=== PATIENT | female | born 1950 | race African-American/Black ===

== ENCOUNTER 2017-03-05 18:20 | Observation (INO) | payer MEDICARE, MEDICAID ==
[~2017-03-05] VITALS: Ht 157.5 cm; Wt 60.8 kg
[~2017-03-05 18:20] MED LIST: ASPI-1079 PO; GABA300C PO; INSU100C11 SQ; LISI10TA5 PO; METF500T PO; SIMV10TA2 PO
[2017-03-05 19:36] LABS: BASOPHILS % 0.9 % (0.0-2.0); EOSINOPHILS % 1.8 % (0.0-5.0); HEMATOCRIT. 33.2 % (36.0-48.0); HEMOGLOBIN. 11.2 g/dL (12.0-16.0); LYMPHOCYTES % 14.6 % (20.0-50.0); MEAN CORPUSCULAR HEMOGLOBIN 25.8 pg (28.0-32.0); MEAN CORPUSCULAR VOLUME 76.3 fL (81.0-99.0); MEAN PLATELET VOLUME 9.6 fl (7.4-10.4); MONOCYTES % 10.7 % (2.0-8.0); PLATELET 164 x1000/uL (130-400); RED BLOOD CELL COUNT 4.35 mill/uL (4.2-5.4); RED CELL DISTRIBUTION WIDTH 14.3 % (11.6-14.6)
[2017-03-05 19:42] LABS: INR 1.1; PROTHROMBIN TIME 11.7 sec (9.4-11.6)
[2017-03-05 19:54] LABS: CARBON DIOXIDE 32 mEq/L (21-32); CHLORIDE 98 mEq/L (98-107); TROPONIN I < 0.02 ng/mL (0.00-0.04)
[2017-03-05] MEDS ORDERED: SODIUM CHLORIDE 0.9% 1,000 ML IV ONE (20:43)
[2017-03-05] MEDS ORDERED: KETOROLAC 30MG/ML VIAL IV STA (20:43)
[2017-03-06] VITALS (8 sets, daily range): BP systolic 82–149; BP diastolic 55–99
[2017-03-06] MEDS ORDERED: INSULIN REGULAR (HUMULIN R) 300UNITS/3ML SUBCUT ONE (01:15)
[2017-03-06] MEDS ORDERED: SITA100T11 PO (02:34)
[2017-03-06] MEDS ORDERED: POTA20TA12 PO (02:34)
[2017-03-06] MEDS ORDERED: METF10002 PO (02:34)
[2017-03-06] MEDS ORDERED: ACET-2178 PO (02:34)
[2017-03-06] MEDS ORDERED: LISI-604 PO (02:34)
[2017-03-06] MEDS ORDERED: ROSU20TA PO (02:34)
[2017-03-06] MEDS ORDERED: FURO-151 PO (02:34)
[2017-03-06] MEDS ORDERED: INSU100I3 SQ (02:34)
[2017-03-06] MEDS ORDERED: CYAN10009 PO (02:34)
[2017-03-06] MEDS ORDERED: INSU3INS6 SUBCUT (02:34)
[2017-03-06] MEDS ORDERED: GABA600T PO (02:34)
[2017-03-06] MEDS ORDERED: TEMAZEPAM 15MG CAPSULE PO PRN (03:30)
[2017-03-06] MEDS ORDERED: SODIUM CHLORIDE 0.9% 500 ML IV ONE (03:45)
[2017-03-06] MEDS: SODIUM CHLORIDE 0.9% INJ 3ML FLUSH IVF SCH ×3 (04:00→20:36)
[2017-03-06] MEDS ORDERED: DEXTROSE 50% WATER 50ML SYRINGE IV PRN (04:00)
[2017-03-06] MEDS: GABAPENTIN 300MG CAPSULE PO SCH ×3 (05:32→20:35)
[2017-03-06] MEDS: BLOOD SUGAR DIAGNOSTIC STRIP TEST SCH ×4 (05:40→20:48)
[2017-03-06 06:23] LABS: CLARITY URINE CLEAR (CLEAR); COLOR URINE YELLOW (YELLOW); GLUCOSE URINE 3+ (NEGATIVE); KETONES URINE NEGATIVE (NEGATIVE); LEUKOCYTE ESTERASE URINE 1+ (NEGATIVE); NITRITE URINE NEGATIVE (NEGATIVE); OCCULT BLOOD URINE NEGATIVE (NEGATIVE); PROTEIN URINE NEGATIVE (NEGATIVE); SPECIFIC GRAVITY URINE 1.021 (1.005-1.030); UROBILINOGEN URINE 0.2 E.U./dL (0.2-1.0)
[2017-03-06] MEDS: INSULIN LISPRO 100 UNITS/ML SUBCUT SCH ×4 (08:07→21:08)
[2017-03-06] MEDS ORDERED: FAMOTIDINE 20MG TABLET PO SCH ×2 (09:00→17:00)
[2017-03-06] MEDS ORDERED: ASPIRIN 81MG EC TABLET PO SCH (09:00)
[2017-03-06] MEDS ORDERED: LISINOPRIL 20MG TABLET PO SCH (09:00)
[2017-03-06] MEDS ORDERED: ENOXAPARIN 40MG/0.4ML SYR SUBCUT SCH (09:00)
[2017-03-06] MEDS: ACETAMINOPHEN 325MG TABLET PO PRN ×2 (11:47→21:09)
[2017-03-06 13:29] LABS: BASOPHILS % 1.7 % (0.0-2.0); EOSINOPHILS % 2.5 % (0.0-5.0); HEMATOCRIT. 35.3 % (36.0-48.0); HEMOGLOBIN. 11.8 g/dL (12.0-16.0); LYMPHOCYTES % 20.7 % (20.0-50.0); MEAN CORPUSCULAR HEMOGLOBIN 25.8 pg (28.0-32.0); MEAN CORPUSCULAR VOLUME 77.2 fL (81.0-99.0); MEAN PLATELET VOLUME 10.3 fl (7.4-10.4); MONOCYTES % 7.6 % (2.0-8.0); NEUTROPHILS % 67.5 % (40.0-76.0); PLATELET 160 x1000/uL (130-400); RED BLOOD CELL COUNT 4.57 mill/uL (4.2-5.4); RED CELL DISTRIBUTION WIDTH 14.5 % (11.6-14.6)
[2017-03-06 14:01] LABS: CARBON DIOXIDE 31 mEq/L (21-32); CHLORIDE 102 mEq/L (98-107); HDL CHOLESTEROL 73 mg/dL (40-59); LDL CHOLESTEROL 45 mg/dL (5-100); TOTAL IRON BINDING CAPACITY 353 ug/dL (250-450); TROPONIN I < 0.02 ng/mL (0.00-0.04)
[2017-03-06 14:19] LABS: VITAMIN B12 SERUM 1498 pg/mL (211-911)
[2017-03-06 14:21] LABS: FOLIC ACID (FOLATE) SERUM > 20.00 ng/mL (>5.38)
[2017-03-06 14:52] LABS: FERRITIN 87 ng/mL (10-291)
[2017-03-06] MEDS ORDERED: ATORVASTATIN CALCIUM 40MG TABLET PO SCH (21:00)
[2017-03-08 14:21] LABS: A/G RATIO 1.6 (0.7-1.7); ALBUMIN 4.2 g/dL (2.9-4.4); ALPHA-1-GLOBULIN 0.2 g/dL (0.0-0.4); ALPHA-2-GLOBULIN 0.7 g/dL (0.4-1.0); BETA GLOBULIN 0.9 g/dL (0.7-1.3); GAMMA GLOBULINS 0.9 g/dL (0.4-1.8); GLOBULIN TOTAL 2.6 g/dL (2.2-3.9); M-SPIKE Not Observed g/dL (Not Observed); TOTAL PROTEIN SERUM 6.8 g/dL (6.0-8.5)
== END 2017-03-06 22:45 | disposition home or self-care (01) ==
LOC: ER 18:20 → INTOOBSV 21:37 → 7WST 21:37 → ENRESERV 21:50
PROVIDERS: ADMIT Internal Medicine; ATTEND Internal Medicine
DX: R55 Syncope and collapse (principal); M19.90 Unspecified osteoarthritis, unspecified site; N17.9 Acute kidney failure, unspecified; E11.65 Type 2 diabetes mellitus with hyperglycemia; Z83.3 Family history of diabetes mellitus
CPT/HCPCS: 36415; 70450; 71010; 80048; 80053; 80061; 81001; 82607; 82728; 82746; 82962; 83540; 83550; 83880; 84155; 84165; 84443; 84484; 85025; 85379; 85610; 93005; 96361; 96372; 96374; 99285; G0378; J1650; J1815; J1885; J7030; J7040

== ENCOUNTER 2017-08-13 18:40 | Observation (INO) | payer MEDICARE, MEDICAID ==
[~2017-08-13] VITALS: Ht 157.5 cm; Wt 60.8 kg
[~2017-08-13 18:40] MED LIST changes: +ACET-2178 PO; +CYAN10009 PO; +FURO-151 PO; +GABA600T PO; -INSU100C11 SQ; +INSU100I3 SQ; +INSU3INS6 SUBCUT; +LISI-604 PO; -LISI10TA5 PO; +METF10002 PO; -METF500T PO; +POTA20TA12 PO; +ROSU20TA PO; -SIMV10TA2 PO; +SITA100T11 PO
[2017-08-13] MEDS ORDERED: SODIUM CHLORIDE 0.9% 1,000 ML IV ONE ×2 (19:17→19:23)
[2017-08-13] MEDS ORDERED: ONDANSETRON HCL 4MG/2ML VIAL IV ONE (19:30)
[2017-08-13] MEDS ORDERED: DEXTROSE 50% WATER 50ML SYRINGE IV ONE (19:30)
[2017-08-13 19:45] LABS: BASOPHILS % 0.9 % (0.0-2.0); EOSINOPHILS % 1.8 % (0.0-5.0); HEMATOCRIT. 36.3 % (36.0-48.0); HEMOGLOBIN. 11.9 g/dL (12.0-16.0); LYMPHOCYTES % 26.2 % (20.0-50.0); MEAN CORPUSCULAR HEMOGLOBIN 24.3 pg (28.0-32.0); MEAN CORPUSCULAR VOLUME 74.1 fL (81.0-99.0); MEAN PLATELET VOLUME 9.7 fl (7.4-10.4); MONOCYTES % 12.1 % (2.0-8.0); PLATELET 214 x1000/uL (130-400); RED CELL DISTRIBUTION WIDTH 15.4 % (11.6-14.6)
[2017-08-13 19:57] LABS: BETA HYDROXYBUTYRATE 0.1 mMol/L (0.0-0.3); ETHANOL BLOOD < 10 mg/dL
[2017-08-13 20:00] LABS: TROPONIN I < 0.02 ng/mL (0.00-0.04)
[2017-08-13 21:43] LABS: BG BASE EXCESS 6.9 mmol/L (-2.0-2.0); BG CARBOXYHEMOGLOBIN 0.5 % (0.5-1.5); BG DEOXYHEMOGLOBIN 2.4 % (0.0-5.0); BG FRACTION INSPIRED OXYGEN 21; BG METHEMOGLOBIN 0.3 % (0.0-1.5); BG OXYGEN SATURATION 97.6 % (92.0-98.5); BG OXYHEMOGLOBIN 96.8 % (94.0-97.0); BG PCO2 53.7 mmHg (35.0-45.0); BG PH 7.406 (7.350-7.450); BG PO2 108.1 mmHg (75.0-100.0); BG SAMPLE SITE RIGHT RADIAL; BG TOTAL HEMOGLOBIN 12.3 g/dL (12.0-18.0); BG VENT MODE ROOM AIR
[2017-08-13 22:38] LABS: CHLORIDE 103 mEq/L (98-107)
[2017-08-13 22:48] LABS: TROPONIN I < 0.02 ng/mL (0.00-0.04)
[2017-08-14] MEDS ORDERED: ONDANSETRON HCL 4MG/2ML VIAL IV ONE (06:15)
[2017-08-14] MEDS ORDERED: KETOROLAC 30MG/ML VIAL IV ONE (06:15)
[2017-08-14 09:34] VITALS: BP 99/72
[2017-08-14] MEDS ORDERED: ASPI-867 PO (09:46)
[2017-08-14 09:57] VITALS: BP 99/72
[2017-08-14] MEDS ORDERED: ACETAMINOPHEN 325MG TABLET PO PRN (10:00)
[2017-08-14] MEDS ORDERED: ONDANSETRON HCL 4MG/2ML VIAL IV PRN (10:00)
[2017-08-14] MEDS ORDERED: DOCUSATE SODIUM 100MG CAPSULE PO PRN (10:00)
[2017-08-14] MEDS ORDERED: CLONIDINE 0.1MG TABLET PO PRN (10:00)
[2017-08-14] MEDS ORDERED: PNEUMOCOCCAL 23-VAL P-SAC VAC 0.5 ML IM ONE (10:15)
[2017-08-14] MEDS ORDERED: DEXTROSE 50% WATER 50ML SYRINGE IV PRN (10:15)
[2017-08-14] MEDS: SODIUM CHLORIDE 0.9% 1,000 ML IV SCH ×2 (11:54→21:36)
[2017-08-14] MEDS: BLOOD SUGAR DIAGNOSTIC STRIP TEST SCH ×3 (11:54→21:36)
[2017-08-14 12:00] VITALS: BP 104/72
[2017-08-14] MEDS: INSULIN LISPRO 100 UNITS/ML SUBCUT SCH ×3 (12:52→21:45)
[2017-08-14] MEDS ORDERED: INSULIN LISPRO 100 UNITS/ML SUBCUT SCH (13:10)
[2017-08-14 16:00] VITALS: BP 118/79
[2017-08-14 17:38] LABS: CLARITY URINE CLOUDY (CLEAR); COLOR URINE YELLOW (YELLOW); KETONES URINE TRACE (NEGATIVE); LEUKOCYTE ESTERASE URINE 2+ (NEGATIVE); NITRITE URINE NEGATIVE (NEGATIVE); OCCULT BLOOD URINE NEGATIVE (NEGATIVE); PROTEIN URINE 1+ (NEGATIVE); SPECIFIC GRAVITY URINE 1.023 (1.005-1.030); UROBILINOGEN URINE 0.2 E.U./dL (0.2-1.0)
[2017-08-14 17:57] LABS: *AMPHETAMINES SCREEN URINE NEGATIVE (NEGATIVE); *BARBITURATES SCREEN URINE NEGATIVE (NEGATIVE); *BENZODIAZEPINES SCREEN URINE NEGATIVE (NEGATIVE); *COCAINE SCREEN URINE NEGATIVE (NEGATIVE); CANNABINOID URINE SCREEN NEGATIVE (NEGATIVE); METHADONE URINE SCREEN NEGATIVE (NEGATIVE); OPIATES URINE SCREEN NEGATIVE (NEGATIVE); PHENCYCLIDINE URINE SCREEN NEGATIVE (NEGATIVE)
[2017-08-14 20:00] VITALS: BP 120/71
[2017-08-15] VITALS (7 sets, daily range): BP systolic 103–169; BP diastolic 64–87
[2017-08-15 05:20] LABS: BASOPHILS % 1.1 % (0.0-2.0); EOSINOPHILS % 2.7 % (0.0-5.0); HEMATOCRIT. 32.7 % (36.0-48.0); LYMPHOCYTES % 23.2 % (20.0-50.0); MEAN CORPUSCULAR VOLUME 74.4 fL (81.0-99.0); MEAN PLATELET VOLUME 9.9 fl (7.4-10.4); MONOCYTES % 8.7 % (2.0-8.0); NEUTROPHILS % 64.3 % (40.0-76.0); PLATELET 189 x1000/uL (130-400); RED BLOOD CELL COUNT 4.39 mill/uL (4.2-5.4); RED CELL DISTRIBUTION WIDTH 15.3 % (11.6-14.6)
[2017-08-15] MEDS: BLOOD SUGAR DIAGNOSTIC STRIP TEST SCH ×3 (06:23→17:46)
[2017-08-15 08:04] LABS: CHLORIDE 106 mEq/L (98-107)
[2017-08-15] MEDS: INSULIN LISPRO 100 UNITS/ML SUBCUT SCH ×3 (08:30→18:18)
[2017-08-15] MEDS ORDERED: ASPIRIN 81MG EC TABLET PO SCH (09:00)
[2017-08-15] MEDS ORDERED: LEVOFLOXACIN 500MG TABLET PO NR ×2 (12:00)
[2017-08-15] MEDS: SODIUM CHLORIDE 0.9% 1,000 ML IV SCH (13:38)
== END 2017-08-15 20:15 | disposition home or self-care (01) ==
LOC: ER 20:12 → 7WST 08-14 06:08 → INTOOBSV 08-14 06:08 → ENRESERV 08-14 07:52
PROVIDERS: ADMIT Internal Medicine; ATTEND Internal Medicine
DX: R11.2 Nausea with vomiting, unspecified (principal); E11.649 Type 2 diabetes mellitus with hypoglycemia without coma; I10 Essential (primary) hypertension; N39.0 Urinary tract infection, site not specified; Z82.49 Family history of ischemic heart disease and other diseases of the circulatory system; Z83.3 Family history of diabetes mellitus; Z23 Encounter for immunization
CPT/HCPCS: 36415; 36600; 70450; 71045; 74176; 74181; 80048; 80053; 80305; 81001; 82010; 82375; 82805; 82962; 83605; 83690; 84484; 85025; 87040; 87086; 90471; 93005; 96361; 96372; 96374; 96375; 96376; 99285; G0378; G0482; J1815; J1885; J2405; J7030; 90732

== ENCOUNTER 2018-12-04 11:21 | Emergency (ER) | payer MEDICARE, MEDICAID ==
[~2018-12-04] VITALS: Ht 157.5 cm; Wt 68.7 kg
[~2018-12-04 11:21] MED LIST changes: -ACET-2178 PO; +ASA5EC PO; -ASPI-1079 PO; -CYAN10009 PO; -FURO-151 PO; -GABA300C PO; -INSU100I3 SQ; -INSU3INS6 SUBCUT; -LISI-604 PO; -METF10002 PO; -POTA20TA12 PO; -ROSU20TA PO; -SITA100T11 PO
[2018-12-04] MEDS ORDERED: BACITRACIN ZINC OINT UDPKT TOP ONE (18:30)
[2018-12-04] MEDS ORDERED: HYDROCODONE/ACETAMINOPHEN 5/325MG TABLET PO ONE (18:30)
[2018-12-04] MEDS ORDERED: LIDOCAINE HCL/PF 1% 10 MG/ML 5ML VIAL IJ ONE (18:30)
[2018-12-04 23:01] VITALS: BP 133/85
== END 2018-12-04 23:02 | disposition home or self-care (01) ==
LOC: ER 11:21
DX: S91.115A Laceration without foreign body of left lesser toe(s) without damage to nail, initial encounter (principal); M79.605 Pain in left leg; E11.9 Type 2 diabetes mellitus without complications; I10 Essential (primary) hypertension; F17.210 Nicotine dependence, cigarettes, uncomplicated; Z79.82 Long term (current) use of aspirin; Z98.49 Cataract extraction status, unspecified eye; W01.0XXA Fall on same level from slipping, tripping and stumbling without subsequent striking against object, initial encounter; Y93.89 Activity, other specified; Y92.018 Other place in single-family (private) house as the place of occurrence of the external cause
CPT/HCPCS: 12001; 73522; 93971; 99284

== ENCOUNTER 2018-12-07 18:10 | Emergency (ER) | payer MEDICARE, MEDICAID ==
[2018-12-08] MEDS ORDERED: IBUPROFEN 800MG TABLET PO ONE (01:00)
[2018-12-08 01:06] VITALS: BP 156/88
== END 2018-12-08 01:07 | disposition home or self-care (01) ==
LOC: ER 18:10
DX: S91.312D Laceration without foreign body, left foot, subsequent encounter (principal); E11.9 Type 2 diabetes mellitus without complications; I10 Essential (primary) hypertension; X58.XXXD Exposure to other specified factors, subsequent encounter; Z79.82 Long term (current) use of aspirin
CPT/HCPCS: 99283

== ENCOUNTER 2019-01-11 17:35 | Inpatient (IN) | payer MEDICARE, MEDICAID ==
[~2019-01-11] VITALS: Ht 157.5 cm; Wt 69.9 kg
[2019-01-11] MEDS ORDERED: ONDANSETRON HCL 4MG/2ML INJ IV STA (18:16)
[2019-01-11 18:54] LABS: HEMATOCRIT. 28.1 % (36.0-48.0); HEMOGLOBIN. 9.3 g/dL (12.0-16.0); MEAN CORPUSCULAR HEMOGLOBIN 25.2 pg (28.0-32.0); MEAN CORPUSCULAR VOLUME 76.5 fL (81.0-99.0); MEAN PLATELET VOLUME 9.2 fl (7.4-10.4); PLATELET 183 x1000/uL (130-400); RED BLOOD CELL COUNT 3.68 mill/uL (4.2-5.4); RED CELL DISTRIBUTION WIDTH 16.4 % (11.6-14.6)
[2019-01-11 18:56] LABS: CHLORIDE 114 mEq/L (98-107)
[2019-01-11 19:01] LABS: ETHANOL BLOOD < 10 mg/dL
[2019-01-11 19:27] LABS: CLARITY URINE CLEAR (CLEAR); COLOR URINE YELLOW (YELLOW); KETONES URINE NEGATIVE (NEGATIVE); LEUKOCYTE ESTERASE URINE NEGATIVE (NEGATIVE); NITRITE URINE NEGATIVE (NEGATIVE); OCCULT BLOOD URINE NEGATIVE (NEGATIVE); PROTEIN URINE 1+ (NEGATIVE); SPECIFIC GRAVITY URINE 1.018 (1.005-1.030); UROBILINOGEN URINE 0.2 E.U./dL (0.2-1.0)
[2019-01-11 19:37] LABS: PLATELET ESTIMATE NORMAL
[2019-01-11 20:04] LABS: METHADONE URINE SCREEN NEGATIVE (NEGATIVE)
[2019-01-11 20:05] LABS: *AMPHETAMINES SCREEN URINE NEGATIVE (NEGATIVE); *BARBITURATES SCREEN URINE NEGATIVE (NEGATIVE); *BENZODIAZEPINES SCREEN URINE NEGATIVE (NEGATIVE); *COCAINE SCREEN URINE NEGATIVE (NEGATIVE); CANNABINOID URINE SCREEN NEGATIVE (NEGATIVE); OPIATES URINE SCREEN NEGATIVE (NEGATIVE)
[2019-01-11 20:08] LABS: PHENCYCLIDINE URINE SCREEN NEGATIVE (NEGATIVE)
[2019-01-11] MEDS ORDERED: LEVOFLOXACIN 750MG PREMIX 150 ML IV ONE (22:30)
[2019-01-12] MEDS ORDERED: ASPIRIN 81MG TABLET PO SCH (09:00)
[2019-01-12 09:20] VITALS: BP 129/71
[2019-01-12 09:45] VITALS: BP 129/71
[2019-01-12] MEDS: ENOXAPARIN 40MG/0.4ML SYR SUBCUT SCH (10:04)
[2019-01-12 10:58] LABS: HEMATOCRIT. 25.1 % (36.0-48.0); HEMOGLOBIN. 8.4 g/dL (12.0-16.0); MEAN CORPUSCULAR HEMOGLOBIN 25.4 pg (28.0-32.0); MEAN PLATELET VOLUME 9.6 fl (7.4-10.4); PLATELET 165 x1000/uL (130-400); RED CELL DISTRIBUTION WIDTH 16.3 % (11.6-14.6)
[2019-01-12] MEDS ORDERED: IPRATROPIUM/ALBUTEROL 0.5-3(2.5)MG/3ML NEB INH PRN (11:45)
[2019-01-12] MEDS ORDERED: HYDROCODONE/ACETAMINOPHEN 5/325MG TABLET PO PRN (11:45)
[2019-01-12] MEDS ORDERED: ONDANSETRON HCL 4MG/2ML INJ IV PRN (11:45)
[2019-01-12] MEDS: BLOOD SUGAR DIAGNOSTIC STRIP TEST SCH ×3 (11:45→21:00)
[2019-01-12] MEDS ORDERED: CLONIDINE 0.1MG TABLET PO PRN (11:45)
[2019-01-12] MEDS ORDERED: ENOXAPARIN 40MG/0.4ML SYR SUBCUT SCH (11:45)
[2019-01-12] MEDS ORDERED: ACETAMINOPHEN 325MG TABLET PO PRN (11:45)
[2019-01-12] MEDS ORDERED: PIPERACILLIN/TAZ 3.375G PREMIX 50 ML IV SCH (11:45)
[2019-01-12 11:49] LABS: PLATELET ESTIMATE NORMAL
[2019-01-12 12:00] VITALS: BP 140/74
[2019-01-12] MEDS ORDERED: DEXTROSE 50% WATER 50ML SYRINGE IV PRN (12:00)
[2019-01-12] MEDS: INSULIN LISPRO 100 UNITS/ML SUBCUT SCH ×3 (13:05→22:19)
[2019-01-12] MEDS: SODIUM CHLORIDE 0.45% 1,000 ML IV SCH (13:06)
[2019-01-12] MEDS: PIPERACILLIN/TAZ 3.375G PREMIX 50 ML IV SCH ×2 (13:06→18:24)
[2019-01-12] MEDS ORDERED: VANCOMYCIN 1250MG in DEXTROSE 5% WATER 250ML IV NR (15:30)
[2019-01-12] MEDS ORDERED: LISI40TA4 MT (15:53)
[2019-01-12] MEDS ORDERED: SITA100T11 MT (15:53)
[2019-01-12] MEDS ORDERED: POTA20TA82 MT (15:53)
[2019-01-12] MEDS ORDERED: METF-416 MT (15:53)
[2019-01-12] MEDS ORDERED: INSU100I28 SQ (15:53)
[2019-01-12] MEDS ORDERED: NAPR-420 MT (15:53)
[2019-01-12] MEDS ORDERED: FURO-151 MT (15:53)
[2019-01-12] MEDS ORDERED: INSU100I13 SQ (15:53)
[2019-01-12] MEDS ORDERED: MULT-1146 MT (15:53)
[2019-01-12 15:57] LABS: CREATINE KINASE 203 IU/L (26-192)
[2019-01-12 15:59] LABS: CREATINE KINASE MB FRACTION 7.1 ng/mL (0.5-3.6)
[2019-01-12 16:00] VITALS: BP 158/79
[2019-01-12] MEDS: METFORMIN HCL 500MG TABLET PO SCH ×2 (18:21→18:26)
[2019-01-12] MEDS: GABAPENTIN 300MG CAPSULE PO SCH (18:22)
[2019-01-12] MEDS: FUROSEMIDE 40MG TABLET PO SCH (18:22)
[2019-01-12 20:00] VITALS: BP 120/70
[2019-01-12 23:17] LABS: CREATINE KINASE 168 IU/L (26-192)
[2019-01-13] VITALS (8 sets, daily range): BP systolic 70–152; BP diastolic 45–84
[2019-01-13] MEDS: PIPERACILLIN/TAZ 3.375G PREMIX 50 ML IV SCH ×3 (02:14→18:37)
[2019-01-13] MEDS ORDERED: VANCOMYCIN 750 MG PREMIX 150 ML IV SCH (05:00)
[2019-01-13] MEDS: SODIUM CHLORIDE 0.45% 1,000 ML IV SCH (05:18)
[2019-01-13] MEDS: BLOOD SUGAR DIAGNOSTIC STRIP TEST SCH ×4 (06:20→21:11)
[2019-01-13] MEDS: INSULIN LISPRO 100 UNITS/ML SUBCUT SCH ×4 (06:26→21:00)
[2019-01-13] MEDS ORDERED: SODIUM CHLORIDE 0.9% 250 ML IV ONE (07:00)
[2019-01-13 07:14] LABS: BASOPHILS % 0.2 % (0.0-2.0); EOSINOPHILS % 0.6 % (0.0-5.0); HEMOGLOBIN. 7.9 g/dL (12.0-16.0); LYMPHOCYTES % 11.3 % (20.0-50.0); MEAN CORPUSCULAR HEMOGLOBIN 25.4 pg (28.0-32.0); MEAN CORPUSCULAR VOLUME 77.4 fL (81.0-99.0); MEAN PLATELET VOLUME 10.4 fl (7.4-10.4); MONOCYTES % 8.8 % (2.0-8.0); NEUTROPHILS % 79.1 % (40.0-76.0); PLATELET 119 x1000/uL (130-400); RED CELL DISTRIBUTION WIDTH 16.7 % (11.6-14.6)
[2019-01-13] MEDS: METFORMIN HCL 500MG TABLET PO SCH (07:15)
[2019-01-13 07:37] LABS: CHLORIDE 109 mEq/L (98-107)
[2019-01-13 07:57] LABS: LDL CHOLESTEROL 38 mg/dL (5-100)
[2019-01-13 07:58] LABS: CREATINE KINASE 144 IU/L (26-192)
[2019-01-13 07:59] LABS: CREATINE KINASE MB FRACTION 2.8 ng/mL (0.5-3.6); HDL CHOLESTEROL 66 mg/dL (40-59); T4 FREE 1.27 ng/dL (0.76-1.46)
[2019-01-13] MEDS ORDERED: LISINOPRIL 40MG TABLET PO SCH (09:00)
[2019-01-13] MEDS ORDERED: MEDICATION NOT ON FORMULARY EA (Sitagliptin Phosphate (Januvia) 1 TAB) MT SCH (09:00)
[2019-01-13 10:23] LABS: BG BASE EXCESS -3.1 mmol/L (-2.0-2.0); BG CARBOXYHEMOGLOBIN 0.6 % (0.5-1.5); BG DEOXYHEMOGLOBIN 8.3 % (0.0-5.0); BG FRACTION INSPIRED OXYGEN 21; BG HCO3 ACT 22.5 mmol/L (22.0-26.0); BG METHEMOGLOBIN 0.2 % (0.0-1.5); BG OXYGEN SATURATION 91.6 % (92.0-98.5); BG OXYHEMOGLOBIN 90.9 % (94.0-97.0); BG PCO2 42.3 mmHg (35.0-45.0); BG PH 7.343 (7.350-7.450); BG PO2 64.9 mmHg (75.0-100.0); BG SAMPLE SITE RIGHT BRACHIAL; BG TOTAL HEMOGLOBIN 8.5 g/dL (12.0-18.0); BG VENT MODE ROOM AIR
[2019-01-13] MEDS: ENOXAPARIN 40MG/0.4ML SYR SUBCUT SCH (11:41)
[2019-01-13] MEDS: GABAPENTIN 300MG CAPSULE PO SCH ×2 (11:50→18:37)
[2019-01-13] MEDS: ASPIRIN 325MG EC TABLET PO SCH (11:50)
[2019-01-13] MEDS: MULTIVITAMINS,THER W-MINERALS TABLET PO SCH (11:51)
[2019-01-13] MEDS: FUROSEMIDE 40MG TABLET PO SCH (11:51)
[2019-01-13] MEDS: LINAGLIPTIN 5MG TABLET PO SCH (11:51)
[2019-01-13] MEDS ORDERED: HYDRALAZINE 20MG/ML VIAL IV PRN (13:45)
[2019-01-13] MEDS ORDERED: DIPHENHYDRAMINE 50MG/ML VIAL IV PRN (13:45)
[2019-01-13 17:08] LABS: INR 1.1; PROTHROMBIN TIME 10.9 sec (9.6-11.0)
[2019-01-13 17:52] LABS: HEPATITIS B SURFACE ANTIGEN NEGATIVE
[2019-01-13 18:22] LABS: HEPATITIS A AB IGM NEGATIVE (NEGATIVE)
[2019-01-13] MEDS: IPRATROPIUM/ALBUTEROL 0.5-3(2.5)MG/3ML NEB HHN SCH (21:27)
[2019-01-13] MEDS ORDERED: VANCOMYCIN 1 G PREMIX 200 ML IV SCH (22:00)
[2019-01-14] VITALS (11 sets, daily range): BP systolic 105–178; BP diastolic 7–97
[2019-01-14] MEDS: IPRATROPIUM/ALBUTEROL 0.5-3(2.5)MG/3ML NEB HHN SCH ×4 (00:55→21:55)
[2019-01-14] MEDS: PIPERACILLIN/TAZ 3.375G PREMIX 50 ML IV SCH ×3 (03:05→18:40)
[2019-01-14] MEDS: BLOOD SUGAR DIAGNOSTIC STRIP TEST SCH ×4 (06:05→21:45)
[2019-01-14] MEDS: INSULIN LISPRO 100 UNITS/ML SUBCUT SCH ×4 (06:07→21:46)
[2019-01-14 06:11] LABS: HEMATOCRIT 21.5 % (36.0-48.0); HEMOGLOBIN 7.3 g/dL (12.0-16.0); MEAN CORPUSCULAR HEMOGLOBIN 25.9 pg (28.0-32.0); MEAN CORPUSCULAR VOLUME 76.2 fL (81.0-99.0); PLATELET 137 x1000/uL (130-400); RED BLOOD CELL COUNT 2.82 mill/uL (4.2-5.4); RED CELL DISTRIBUTION WIDTH 16.1 % (11.6-14.6)
[2019-01-14 06:59] LABS: CHLORIDE 107 mEq/L (98-107)
[2019-01-14] MEDS ORDERED: ENOXAPARIN 30MG/0.3ML SYR SUBCUT SCH (09:00)
[2019-01-14] MEDS: GABAPENTIN 300MG CAPSULE PO SCH ×2 (09:52→17:43)
[2019-01-14] MEDS: LINAGLIPTIN 5MG TABLET PO SCH (09:53)
[2019-01-14] MEDS: ASPIRIN 325MG EC TABLET PO SCH (09:53)
[2019-01-14] MEDS: FUROSEMIDE 40MG TABLET PO SCH (09:53)
[2019-01-14] MEDS: MULTIVITAMINS,THER W-MINERALS TABLET PO SCH (09:53)
[2019-01-14] MEDS: VANCOMYCIN 750 MG PREMIX 150 ML IV SCH ×2 (11:29→21:47)
[2019-01-14] MEDS: FUROSEMIDE 40MG/4ML VIAL IVP SCH (11:32)
[2019-01-15] VITALS: BP 113/63
[2019-01-15 00:09] LABS: HEMATOCRIT 26.4 % (36.0-48.0)
[2019-01-15 00:39] LABS: PROTHROMBIN TIME 10.7 sec (9.6-11.0)
[2019-01-15] MEDS: PIPERACILLIN/TAZ 3.375G PREMIX 50 ML IV SCH ×3 (01:34→19:08)
[2019-01-15 04:00] VITALS: BP 158/87
[2019-01-15] MEDS: IPRATROPIUM/ALBUTEROL 0.5-3(2.5)MG/3ML NEB HHN SCH ×4 (05:19→20:25)
[2019-01-15 06:28] LABS: HEMATOCRIT 26.3 % (36.0-48.0); HEMOGLOBIN 9.1 g/dL (12.0-16.0); MEAN CORPUSCULAR VOLUME 75.2 fL (81.0-99.0); PLATELET 162 x1000/uL (130-400)
[2019-01-15 06:35] LABS: CHLORIDE 105 mEq/L (98-107)
[2019-01-15] MEDS: BLOOD SUGAR DIAGNOSTIC STRIP TEST SCH ×4 (06:38→21:09)
[2019-01-15] MEDS: INSULIN LISPRO 100 UNITS/ML SUBCUT SCH ×4 (06:39→21:09)
[2019-01-15 08:00] VITALS: BP 145/84
[2019-01-15] MEDS: ASPIRIN 325MG EC TABLET PO SCH (08:43)
[2019-01-15] MEDS: FUROSEMIDE 40MG/4ML VIAL IVP SCH (08:43)
[2019-01-15] MEDS: GABAPENTIN 300MG CAPSULE PO SCH ×2 (08:43→16:52)
[2019-01-15] MEDS: LINAGLIPTIN 5MG TABLET PO SCH (08:43)
[2019-01-15] MEDS: MULTIVITAMINS,THER W-MINERALS TABLET PO SCH (08:43)
[2019-01-15] MEDS: VANCOMYCIN 750 MG PREMIX 150 ML IV SCH (10:59)
[2019-01-15 12:00] VITALS: BP 136/75
[2019-01-15 16:00] VITALS: BP 160/90
[2019-01-15 20:00] VITALS: BP 118/67
[2019-01-16] VITALS: BP 102/57
[2019-01-16] MEDS: IPRATROPIUM/ALBUTEROL 0.5-3(2.5)MG/3ML NEB HHN SCH ×3 (02:01→14:39)
[2019-01-16] MEDS: PIPERACILLIN/TAZ 2.25G PREMIX 50 ML IV SCH ×2 (02:18→09:40)
[2019-01-16 04:00] VITALS: BP 112/69
[2019-01-16] MEDS ORDERED: VANCOMYCIN 1 G PREMIX 200 ML IV SCH (05:00)
[2019-01-16 06:46] LABS: HEMATOCRIT 28.3 % (36.0-48.0); HEMOGLOBIN 9.4 g/dL (12.0-16.0); MEAN CORPUSCULAR HEMOGLOBIN 25.4 pg (28.0-32.0); PLATELET 168 x1000/uL (130-400); RED BLOOD CELL COUNT 3.72 mill/uL (4.2-5.4)
[2019-01-16] MEDS: BLOOD SUGAR DIAGNOSTIC STRIP TEST SCH ×3 (06:47→16:45)
[2019-01-16] MEDS: INSULIN LISPRO 100 UNITS/ML SUBCUT SCH ×3 (06:47→17:15)
[2019-01-16 07:33] LABS: CHLORIDE 102 mEq/L (98-107)
[2019-01-16 08:00] VITALS: BP 130/82
[2019-01-16] MEDS: FUROSEMIDE 40MG/4ML VIAL IVP SCH (09:38)
[2019-01-16] MEDS: LINAGLIPTIN 5MG TABLET PO SCH (09:39)
[2019-01-16] MEDS: MULTIVITAMINS,THER W-MINERALS TABLET PO SCH (09:39)
[2019-01-16] MEDS: GABAPENTIN 300MG CAPSULE PO SCH ×2 (09:39→17:00)
[2019-01-16] MEDS: ASPIRIN 325MG EC TABLET PO SCH (09:39)
[2019-01-16 12:00] VITALS: BP 143/84
[2019-01-16 16:00] VITALS: BP 154/87
[2019-01-16 16:37] VITALS: BP 154/87
== END 2019-01-16 18:12 | disposition home health service (06) | DRG 871 ==
LOC: ER 17:35 → 5WST 23:13 → EDBEDREQ 23:15 → EDBEDREQTM 23:15 → EDBEDREQ 23:16 → ENRESERV 01-12 06:58
PROVIDERS: ADMIT Internal Medicine; ATTEND Internal Medicine
PROC: 30233N1 Transfusion of Nonautologous Red Blood Cells into Peripheral Vein, Percutaneous Approach (ICD-10-PCS; principal; 2019-01-14)
DX: A41.9 Sepsis, unspecified organism (principal); I50.33 Acute on chronic diastolic (congestive) heart failure; J18.1 Lobar pneumonia, unspecified organism; N17.9 Acute kidney failure, unspecified; D68.59 Other primary thrombophilia; I31.3 Pericardial effusion (noninflammatory); R18.8 Other ascites; R06.03 Acute respiratory distress; D64.9 Anemia, unspecified; E78.5 Hyperlipidemia, unspecified; I11.0 Hypertensive heart disease with heart failure; R74.0 Nonspecific elevation of levels of transaminase and lactic acid dehydrogenase [LDH]; R00.1 Bradycardia, unspecified; R80.9 Proteinuria, unspecified; N85.2 Hypertrophy of uterus; R91.8 Other nonspecific abnormal finding of lung field; E11.42 Type 2 diabetes mellitus with diabetic polyneuropathy; E87.5 Hyperkalemia; K52.9 Noninfective gastroenteritis and colitis, unspecified; I27.20 Pulmonary hypertension, unspecified; K59.00 Constipation, unspecified; N63.10 Unspecified lump in the right breast, unspecified quadrant; Z82.49 Family history of ischemic heart disease and other diseases of the circulatory system; Z83.3 Family history of diabetes mellitus; Z79.82 Long term (current) use of aspirin
CPT/HCPCS: 36415; 36600; 71045; 71250; 74176; 76700; 78582; 80048; 80061; 80076; 80202; 80305; 80320; 82375; 82550; 82553; 82805; 82962; 83036; 83880; 84439; 84443; 84484; 85014; 85018; 85027; 85044; 85379; 85384; 86300; 86301; 86304; 86705; 86709; 86803; 86850; 86900; 86920; 87340; 93005; 93306; 93970; 94640; 96365; 96372; 97162; 97166; 97530; 97535; 99285; A9558; J1650; J1815; J1940; J1956; J2405; J2543; J3370; J7040; J7050; J7060; J7620; P9016; A4315; G0480